=== PATIENT | male | born 1945 | race Caucasian/White ===

== ENCOUNTER 2016-11-09 06:45 | Inpatient (IN) | payer OTHER ==
[~2016-11-09] VITALS: Ht 172.7 cm; Wt 86.2 kg
[~2016-11-09 06:45] MED LIST: ATENOLOL 50 MG50 M1 PO; FIBERCON625 M1 PO; LIPITOR40 MG PO; LISINOPRIL40 MG PO; NEXIUM40 MG PO; PLAVIX 75 MG TA75 MG PO
[2016-11-09 06:48] VITALS: BP 131/69
[2016-11-09 07:29] LABS: ABSOLUTE NEUTROPHILS 7.5 thou/uL (1.4-8.2); BASOPHILS 0.5 % (0.0-2.0); EOSINOPHILS 1.1 % (0.0-3.0); HEMATOCRIT 40.8 % (42.0-52.0); LYMPHOCYTES 11.3 % (24.0-44.0); MCH 30.4 pg (26.0-34.0); MCHC 34.4 g/dL (28.0-37.0); MCV 88.5 fL (80.0-100.0); MONOCYTES 10.8 % (1.0-8.0); PLATELET COUNT 243 thou/uL (150-400); POLYS 76.3 % (36.0-66.0); RBC 4.61 mil/uL (4.50-6.00); RDW 13.8 % (10.5-14.5); WBC 9.8 thou/uL (4.0-11.0)
[2016-11-09 07:47] LABS: URINE BILIRUBIN NEGATIVE (Negative); URINE BLOOD NEGATIVE (Negative); URINE COLOR YELLOW; URINE GLUCOSE-RANDOM* NEGATIVE (Negative); URINE KETONES NEGATIVE (Negative); URINE LEUKOCYTES-REFLEX NEGATIVE (Negative); URINE PROTEIN (DIPSTICK) NEGATIVE (Negative); URINE SPECIFIC GRAVITY >= 1.030 (1.003-1.035)
[2016-11-09 08:15] LABS: MANUAL DIFF NO
[2016-11-09 08:44] LABS: CALCIUM 9.1 mg/dL (8.5-10.1); CREATININE 1.1 mg/dL (0.7-1.3); POTASSIUM 3.6 mmol/L (3.5-5.1); TOTAL BILIRUBIN 1.2 mg/dL (<0.1-1.0); TOTAL PROTEIN 7.5 g/dL (6.4-8.2)
[2016-11-09 09:41] VITALS: BP 116/66
[2016-11-09 10:22] VITALS: BP 110/69
[2016-11-09 16:11] VITALS: BP 126/68
[2016-11-09 19:15] VITALS: BP 120/68
[2016-11-10 03:24] LABS: ABSOLUTE NEUTROPHILS 3.3 thou/uL (1.4-8.2); BASOPHILS 0.3 % (0.0-2.0); EOSINOPHILS 2.5 % (0.0-3.0); HEMATOCRIT 36.5 % (42.0-52.0); HEMOGLOBIN 12.6 gm/dL (14.0-18.0); LYMPHOCYTES 24.5 % (24.0-44.0); MCH 30.2 pg (26.0-34.0); MCHC 34.6 g/dL (28.0-37.0); MCV 87.4 fL (80.0-100.0); MONOCYTES 10.9 % (1.0-8.0); PLATELET COUNT 186 thou/uL (150-400); POLYS 61.8 % (36.0-66.0); RBC 4.17 mil/uL (4.50-6.00); RDW 13.7 % (10.5-14.5); WBC 5.3 thou/uL (4.0-11.0)
[2016-11-10 03:30] VITALS: BP 132/73
[2016-11-10 04:06] LABS: MANUAL DIFF NO
[2016-11-10 04:39] LABS: ALBUMIN 3.1 g/dL (3.4-5.0); CALCIUM 8.3 mg/dL (8.5-10.1); CREATININE 0.9 mg/dL (0.7-1.3); DIRECT BILIRUBIN 0.2 mg/dL (<0.1-0.3); POTASSIUM 3.4 mmol/L (3.5-5.1); TOTAL BILIRUBIN 1.3 mg/dL (<0.1-1.0); TOTAL PROTEIN 6.2 g/dL (6.4-8.2)
[2016-11-10 08:00] VITALS: BP 120/64
[2016-11-10 16:00] VITALS: BP 106/60
[2016-11-10 20:40] VITALS: BP 100/58
[2016-11-11 03:30] VITALS: BP 120/66
[2016-11-11] MEDS ORDERED: ATENOLOL 100MG100 MG PO (03:51)
[2016-11-11 07:31] VITALS: BP 118/66
[2016-11-11] MEDS ORDERED: LEVAQUIN 500 M500 M2 PO (15:22)
[2016-11-11] MEDS ORDERED: FLAGYL500 MG PO (15:23)
[2016-11-11 15:33] VITALS: BP 118/66
== END 2016-11-11 15:48 | disposition home or self-care (01) | DRG 392 ==
LOC: ER 06:45 → EROBS 09:33 → 4S 09:33
PROVIDERS: Emergency Medicine; Family Medicine
DX: K57.92 Diverticulitis of intestine, part unspecified, without perforation or abscess without bleeding (principal); I10 Essential (primary) hypertension; E78.00 Pure hypercholesterolemia, unspecified; K21.9 Gastro-esophageal reflux disease without esophagitis; Z79.02 Long term (current) use of antithrombotics/antiplatelets; Z86.73 Personal history of transient ischemic attack (TIA), and cerebral infarction without residual deficits
CPT/HCPCS: 10195

== ENCOUNTER → 2020-01-19 | Outpatient (CLI) | payer OTHER ==
[~2020-01-19] MED LIST changes: +ATENOLOL 100MG100 MG PO; +FLAGYL500 MG PO; +LEVAQUIN 500 M500 M2 PO
== END ==
LOC: SJCVC 10:31
PROVIDERS: ATTEND Internal Medicine
DX: I44.0 Atrioventricular block, first degree (principal); R00.1 Bradycardia, unspecified; I47.1 Supraventricular tachycardia; E78.5 Hyperlipidemia, unspecified; I10 Essential (primary) hypertension; Z79.899 Other long term (current) drug therapy; Z86.73 Personal history of transient ischemic attack (TIA), and cerebral infarction without residual deficits

== ENCOUNTER 2020-10-15 19:36 | Emergency (ER) | payer OTHER ==
[~2020-10-15] VITALS: Ht 182.9 cm; Wt 90.7 kg
[2020-10-15 20:46] LABS: ABSOLUTE NEUTROPHILS 11.2 thou/uL (1.4-8.2); BASOPHILS 0.4 % (0.0-2.0); EOSINOPHILS 0.1 % (0.0-3.0); HEMATOCRIT 42.3 % (42.0-52.0); LYMPHOCYTES 8.1 % (24.0-44.0); MCV 90.7 fL (80.0-100.0); MONOCYTES 3.8 % (1.0-8.0); PLATELET COUNT 266 thou/uL (150-400); POLYS 87.6 % (36.0-66.0); RBC 4.66 mil/uL (4.50-6.00); RDW 13.9 % (10.5-14.5); WBC 12.7 thou/uL (4.0-11.0)
[2020-10-15 21:01] LABS: CALCIUM 9.1 mg/dL (8.5-10.1); CREATININE 1.4 mg/dL (0.7-1.3); POTASSIUM 4.4 mmol/L (3.5-5.1)
[2020-10-15 21:08] LABS: ALBUMIN 4.2 g/dL (3.4-5.0); TOTAL BILIRUBIN 0.8 mg/dL (0.2-1.0); TOTAL PROTEIN 7.6 g/dL (6.4-8.2)
[2020-10-15 23:11] LABS: URINE BILIRUBIN NEGATIVE (Negative); URINE BLOOD 3+ (Negative); URINE CLARITY CLOUDY; URINE COLOR RED; URINE GLUCOSE-RANDOM* NEGATIVE (Negative); URINE KETONES NEGATIVE (Negative); URINE LEUKOCYTES-REFLEX TRACE (Negative); URINE NITRITE-REFLEX NEGATIVE (Negative); URINE PROTEIN (DIPSTICK) 1+ (Negative); URINE SPECIFIC GRAVITY <= 1.005 (1.005-1.035)
[2020-10-15 23:21] LABS: CASTS None Seen /LPF (None Seen); MUCUS 0-3 Light strn/LPF (None Seen); SQUAMOUS None Seen /LPF (0-3)
[2020-10-15 23:22] LABS: AMORPHOUS URATES Few /LPF (None Seen); BACTERIA-REFLEX 1-9 Few /HPF (None Seen); CRYSTALS None Seen /LPF (None Seen); URINE RBC >20 Many /HPF (NONE SEEN); URINE WBC-REFLEX 6-15 Few /HPF (0-5); WBC CLUMPS Occasional (None Seen)
[2020-10-15] MEDS ORDERED: FLOMAX0.4 MG PO (23:50)
[2020-10-16 00:12] VITALS: BP 125/88
== END 2020-10-16 00:10 | disposition home or self-care (01) ==
LOC: ER 19:36
PROVIDERS: Emergency Medicine
DX: N20.0 Calculus of kidney (principal); I10 Essential (primary) hypertension; E78.00 Pure hypercholesterolemia, unspecified; K21.9 Gastro-esophageal reflux disease without esophagitis; Z98.890 Other specified postprocedural states

== ENCOUNTER → 2021-02-01 | Outpatient (CLI) | payer OTHER ==
[~2021-02-01] MED LIST changes: +FLOMAX0.4 MG PO
== END ==
LOC: SJCVC 11:17
PROVIDERS: ATTEND Internal Medicine
DX: R94.31 Abnormal electrocardiogram [ECG] [EKG] (principal); I44.0 Atrioventricular block, first degree; I49.8 Other specified cardiac arrhythmias; I10 Essential (primary) hypertension; I47.1 Supraventricular tachycardia; E78.5 Hyperlipidemia, unspecified; E78.00 Pure hypercholesterolemia, unspecified; Z86.73 Personal history of transient ischemic attack (TIA), and cerebral infarction without residual deficits; Z72.89 Other problems related to lifestyle; Z79.899 Other long term (current) drug therapy